=== PATIENT | female | born 1965 | race Caucasian/White ===

== ENCOUNTER → 2017-02-14 | Day surgery (SDC) | payer BC ==
[~2017-02-14] MED LIST: ADVIL200 M1 DOB; CLARITIN10 M2 PO
--- NOTE | ~2017-02-14 | OR ---
Unit #: [id number] #: [id number] Patient: POLO WOLF [id number] [address] [place], [place] [address] [id number] O MR#: [id number] NAME: POLO WOLF ROOM: Date of Procedure: 02/14/2017 Admission Date: 02/14/2017 Surgeon: Larry Walters M.D. : 1965 Attending Physician: Larry Walters M.D. Referring Physician: Larry Walters M.D. OPERATIVE REPORT JOB NOTE: CC: CHAD DE LOS SANTOS APRN. PRIMARY CARE PHYSICIAN Chad De Los Santos APRN. PREOPERATIVE DIAGNOSES Colorectal cancer screening. The patient has family history of colon cancer. This is her first examination. PROCEDURE PERFORMED Colonoscopy up to cecum and terminal ileum with excellent preparation and good visualization. POSTOPERATIVE DIAGNOSES Completely normal examination up to cecum and terminal ileum. The quality of the prep was excellent. No polyps, diverticula, or hemorrhoids were seen. RECOMMENDATIONS Repeat colonoscopy in 5 years. SEDATION USED MAC. DESCRIPTION OF PROCEDURE Following detailed explanation of the potential risks and complications of a colonoscopy, namely perforation, bleeding, and complication related to sedation, the patient was brought to GI lab and laid in the left lateral decubitus position. A digital rectal examination was performed, which was normal. Lubricated tip of the Olympus video colonoscope was inserted through the anus and advanced under direct vision. The scope was advanced past rectosigmoid into descending colon. No diverticula were seen in this area. The scope tip was then navigated all the way up to cecum with visualization of the ileocecal valve and the appendiceal orifice. Preparation was excellent with good visualization and photodocumentation was obtained. Last several inches of the terminal ileum were also visualized after intubation of the ileocecal valve and appeared normal. Successive segments of the colonic mucosa were examined upon withdrawal and appeared unremarkable. There being no polyps, mass lesions, AVMs, or diverticula. The patient did not have any hemorrhoids at anal verge. The scope was then withdrawn and the patient returned to the recovery area. She tolerated the procedure without any postprocedure complications. Unit #: [id number] #: [id number] Patient: POLO WOLF Dictated by... Lonnie Mcclelland TD: 02/14/2017 22:14 JOB #: [id number] OPERATIVE REPORT Page 1 of 1 X Larry Walters MD X PROCEDURE OPERATIVE NOTE
== END | disposition home or self-care (01) ==
LOC: COPS 06:54
PROVIDERS: Internal Medicine Gastroenterology
PROC: 0DJD8ZZ Inspection of Lower Intestinal Tract, Via Natural or Artificial Opening Endoscopic (ICD-10-PCS; principal; 2017-02-14 08:00)
DX: Z12.11 Encounter for screening for malignant neoplasm of colon (principal); Z80.0 Family history of malignant neoplasm of digestive organs; F17.200 Nicotine dependence, unspecified, uncomplicated; Z79.1 Long term (current) use of non-steroidal anti-inflammatories (NSAID); Z79.899 Other long term (current) drug therapy